=== PATIENT | male | born 1990 | race Caucasian/White ===

== ENCOUNTER → 2017-02-28 | Outpatient (CLI) | payer OTHER ==
--- NOTE | ~2017-02-28 | EE ---
Unit #: [id number] #: [id number] Patient: GABRIELA CAMPOS [id number] [address] [id number] MR#: [id number] NAME: GABRIELA CAMPOS : 1990 SEX: M STUDY DATE/TIME: 02/28/2017 UNIT: CEEG ROOM: STUDY DESCRIPTION: EEG Attending Physician: Noemi Jenkins M.D. Referring Physician: Noemi Jenkins M.D. Primary Care Physician: Generic Doctor Not In System NEURODIAGNOSTICS REPORT EXAM EEG. REASON FOR STUDY Seizures. TECH Kyara. TECHNICAL INFORMATION This is a routine EEG performed using the standard international 10-20 system electrode placement. Photic stimulation was performed. Hyperventilation was also performed. REPORT Throughout the entire study, the best background rhythm seen is approximately 10 Hz. This rhythm is seen in both posterior head regions symmetrically and does attenuate to eye opening and closure. Hyperventilation was performed and does not appear to reproduce any abnormal buildup. Photic stimulation was performed and does not appear to elicit any epileptiform abnormalities; however, a decent photic driving response was seen. There was no sleep recorded during this EEG. There was a significant amount of movement artifact throughout the study; however, no independent epileptiform abnormalities were noted throughout the entire recording. There were no electrographic seizures recorded. INTERPRETATION This is a normal awake EEG. A normal EEG does not rule out the possibility of a seizure disorder. Clinical correlation is advised. Dictated by... Justin Albright II., M.D. GWS/db TD: 03/03/2017 13:31 JOB #: [id number] Unit #: [id number] #: [id number] Patient: GABRIELA CAMPOS NEURODIAGNOSTICS REPORT Page 1 of 1 X NEURODIAGNOSTICS REPORT
== END | disposition home or self-care (01) ==
LOC: CEEG 07:00
DX: G40.209 Localization-related (focal) (partial) symptomatic epilepsy and epileptic syndromes with complex partial seizures, not intractable, without status epilepticus (principal)
CPT/HCPCS: 95816